=== PATIENT | female | born 1950 | race Two or more races ===

== ENCOUNTER 2017-06-24 09:04 | Outpatient (CLI) | payer OTHER | END 2017-06-24 10:33 | disposition home or self-care (01) | LOC: RAD 501 09:04 | DX: J44.1 Chronic obstructive pulmonary disease with (acute) exacerbation (principal); J11.1 Influenza due to unidentified influenza virus with other respiratory manifestations ==

== ENCOUNTER 2018-09-16 07:15 | Outpatient (CLI) | payer OTHER | END 2018-09-16 07:25 | disposition home or self-care (01) | LOC: TOM 07:15 | DX: R10.13 Epigastric pain (principal); Z86.010 Personal history of colon polyps | CPT/HCPCS: 74177; Q9965 ==

== ENCOUNTER 2021-10-04 08:00 | Outpatient (CLI) | payer OTHER | END 2021-10-04 08:30 | disposition home or self-care (01) | LOC: PPH VACUNA 08:00 | PROVIDERS: ATTEND Emergency Medicine Pediatric Emergency Medicine | DX: Z23 Encounter for immunization (principal) ==

== ENCOUNTER 2022-03-21 11:42 | Outpatient (CLI) | payer OTHER | END 2022-03-21 11:44 | disposition home or self-care (01) | LOC: MAMO-SONO 11:42 | PROVIDERS: ATTEND Physical Medicine & Rehabilitation | DX: N60.11 Diffuse cystic mastopathy of right breast (principal); M54.50 Low back pain, unspecified; R22.1 Localized swelling, mass and lump, neck; Z12.31 Encounter for screening mammogram for malignant neoplasm of breast ==

== ENCOUNTER 2022-03-27 13:07 | Outpatient (CLI) | payer OTHER | END 2022-03-27 13:08 | disposition home or self-care (01) | LOC: NUCLEAR 13:07 | PROVIDERS: ATTEND Physical Medicine & Rehabilitation | DX: M81.0 Age-related osteoporosis without current pathological fracture (principal); Z88.1 Allergy status to other antibiotic agents ==

== ENCOUNTER 2022-08-17 08:45 | Outpatient (CLI) | payer OTHER | END 2022-08-17 09:05 | disposition home or self-care (01) | LOC: RAD 08:45 | PROVIDERS: ATTEND Orthopaedic Surgery Hand Surgery | DX: M25.561 Pain in right knee (principal); M25.562 Pain in left knee; S63.8X1A Sprain of other part of right wrist and hand, initial encounter; S63.8X2A Sprain of other part of left wrist and hand, initial encounter; S83.512D Sprain of anterior cruciate ligament of left knee, subsequent encounter; S83.511D Sprain of anterior cruciate ligament of right knee, subsequent encounter ==

== ENCOUNTER 2022-09-12 13:38 | Emergency (ER) | payer OTHER ==
[~2022-09-12] VITALS: Ht 165.1 cm; Wt 63.5 kg
[2022-09-12] MEDS ORDERED: LOSARTAN POTASS50 MG PO (13:49)
[2022-09-12] MEDS ORDERED: HYDRODIURIL12.5 MG PO (13:50)
== END 2022-09-12 19:31 | disposition home or self-care (01) ==
LOC: ER 13:38
DX: I10 Essential (primary) hypertension (principal); R51.9 Headache, unspecified; Z88.8 Allergy status to other drugs, medicaments and biological substances; Z91.013 Allergy to seafood

== ENCOUNTER 2022-09-13 23:09 | Inpatient (IN) | payer OTHER ==
[~2022-09-13] VITALS: Ht 162.6 cm; Wt 635.0 kg
[~2022-09-13 23:09] MED LIST: HYDRODIURIL12.5 MG PO; LOSARTAN POTASS50 MG PO
--- NOTE | 2022-09-13 23:27 | NUR ---
PACIENTE ALERTA Y ORIENTADA POR MARIANELA. REFIERE DESDE LA MANANA KVNG PRESION. AL REALIZAR TRIAGE B/P MANUAL 180/80. REFIERE SENTIR MOLESTIA EN EL PECHO.
--- NOTE | 2022-09-14 01:05 | NUR ---
SE ORIENTA PTE SOBRE TX A SEGUIR, EL CUAL REFIERE ENTENDER. SE CONECTA PTE A MONITOR CARDIACO Y OXIMETRIA DE PULSO CONTINUA, SE CANALIZA PTE EN PERIFERAL RT CON ANGIO #18 Y ANGIO #22 PATENTES. SE COLECTAN MUESTRAS UTILIZANDO MEDIDAS ASEPTICAS. SE ADM. MEDICAMENTOS MARCO A ORDEN MEDICA.
--- NOTE | 2022-09-14 07:51 | NUR ---
SE RECIBE PTE ALERTA Y ORIENTADO POR 3 EN LA UNIDAD DE CENTRO DE DOLOR DE PECHO CONECTADA A MONITOR CARDIACO Y OXYMETRIA PTE ALERTA Y ORIENTADO POR 3 SE OBSERVA VENOPUNCION PANTETE Y ILENE DE EDEMA PTE NO PRESENTA DOLOR AL MOMENTO PTE SE MANTIENE EN OBSERVACION Y BAJO TRATAMIENTO EN ESPERA DEL DR BARRY
--- NOTE | 2022-09-14 15:03 | NUR ---
SE RECIBE PTE ALERTA Y ORIENTADA X3 EN MIQUEL #16 DE UNIDAD DE CHEST PAIN, PTE CONECTADA A MONITOR CARDIACO CON OXIMETRIA CONTINUA. PTE CON H/L X2 COLOCADOS CON IV FLUIDS DE 0.9NSS BAJANDO A 60ML/HR Y DRIP DE TRIDIL BAJANDO A 4ML/HR. SE MIDEN S/V A PTE Y SE DOCUMENTAN. PTE EN ESPERA DE CONSULTA CON CARDIOLOGIA E INTERNISTA. PTE SE MANTIENE BAJO OBSERVACION.
== END 2022-09-17 11:06 | disposition home or self-care (01) | DRG 305 ==
LOC: ER 23:09 → MEDI 09-14 21:52
PROVIDERS: ADMIT Internal Medicine; ATTEND Internal Medicine
PROC: B54BZZZ Ultrasonography of Right Lower Extremity Veins (ICD-10-PCS; 2022-09-14)
PROC: 4A12X4Z Monitoring of Cardiac Electrical Activity, External Approach (ICD-10-PCS; principal; 2022-09-15)
PROC: B24BZZZ Ultrasonography of Heart with Aorta (ICD-10-PCS; 2022-09-15)
DX: I16.9 Hypertensive crisis, unspecified (principal); E78.5 Hyperlipidemia, unspecified; Z20.822 Contact with and (suspected) exposure to COVID-19

== ENCOUNTER → 2022-12-06 | Outpatient (CLI) | payer OTHER | END | disposition home or self-care (01) | LOC: RAD 11:39 | PROVIDERS: ATTEND Orthopaedic Surgery Hand Surgery | DX: S60.222A Contusion of left hand, initial encounter (principal) ==

== ENCOUNTER 2023-04-09 08:06 | Outpatient (CLI) | payer OTHER | END 2023-04-09 08:07 | disposition home or self-care (01) | LOC: NUCLEAR 08:06 | PROVIDERS: ATTEND Internal Medicine | DX: I25.118 Atherosclerotic heart disease of native coronary artery with other forms of angina pectoris (principal); I11.9 Hypertensive heart disease without heart failure | CPT/HCPCS: 78452; 93017; A9500 ==

== ENCOUNTER 2023-04-19 07:21 | Outpatient (CLI) | payer OTHER | END 2023-04-19 07:34 | disposition home or self-care (01) | LOC: TOM 07:21 | PROVIDERS: ATTEND Internal Medicine | DX: N28.89 Other specified disorders of kidney and ureter (principal); Z88.6 Allergy status to analgesic agent; Z91.013 Allergy to seafood | CPT/HCPCS: 74177; Q9965 ==

== ENCOUNTER 2023-05-14 23:35 | Emergency (ER) | payer OTHER ==
[~2023-05-14] VITALS: Ht 165.1 cm; Wt 61.2 kg
[2023-05-15] MEDS ORDERED: ATORVASTATIN CA40 MG PO (00:17)
[2023-05-15] MEDS ORDERED: PROPRANOLOL HCL10 MG PO (00:18)
[2023-05-15 02:28] LABS: HEMATOCRIT 35.2 % (36.0-45.00); HEMOGLOBIN 11.7 g/dL (12.0-15.00); MEAN CELL VOLUME 88.5 fL (80.00-100.00); MEAN CORPUSCULAR HEMOGLOBIN 29.3 pg (27.00-32.0); MEAN CORPUSCULAR HGB CONC 33.2 g/dl (32.0-36.0); PLATELET COUNT 257 K/uL (150-450); RED BLOOD COUNT 3.98 M/uL (4.00-6.00)
[2023-05-15 02:53] LABS: ALBUMIN 3.5 gm/dL (3.4-5.0); BILIRUBIN TOTAL 0.44 mg/dL (0.3-1.2); CALCIUM 9.5 mg/dL (8.5-10.1); CREATININE SERUM 0.93 mg/dL (0.55-1.02); GFR 59.26; GLOBULINA 3.1 G/DL (2.4-3.5); POTASSIUM 4.26 mEq/L (3.5-5.1); TOTAL PROTEIN 6.6 gm/dL (6.4-8.2)
== END 2023-05-15 09:15 ==
LOC: ER 23:35
PROVIDERS: General Practice
DX: R07.9 Chest pain, unspecified (principal); I10 Essential (primary) hypertension; Z91.013 Allergy to seafood; Z88.2 Allergy status to sulfonamides

== ENCOUNTER 2023-10-03 07:17 | Outpatient (CLI) | payer OTHER ==
[~2023-10-03 07:17] MED LIST changes: +ATORVASTATIN CA40 MG PO; +PROPRANOLOL HCL10 MG PO
== END 2023-10-03 07:23 | disposition home or self-care (01) ==
LOC: SONOGRAMA 07:17
PROVIDERS: ATTEND Obstetrics & Gynecology
DX: R10.9 Unspecified abdominal pain (principal); R10.2 Pelvic and perineal pain

== ENCOUNTER → 2024-04-24 | Outpatient (CLI) | payer OTHER | END | disposition home or self-care (01) | LOC: SONOGRAMA 13:38 | PROVIDERS: ATTEND Urology | DX: N28.1 Cyst of kidney, acquired (principal) ==

== ENCOUNTER 2024-09-11 07:27 | Outpatient (CLI) | payer OTHER | END 2024-09-11 07:29 | disposition home or self-care (01) | LOC: TOM 07:27 | PROVIDERS: ATTEND Internal Medicine Gastroenterology | DX: K57.30 Diverticulosis of large intestine without perforation or abscess without bleeding (principal) | CPT/HCPCS: 74177; Q9965 ==

== ENCOUNTER → 2025-03-19 | Outpatient (CLI) | payer OTHER | END | disposition home or self-care (01) | LOC: SONOGRAMA 08:19 | PROVIDERS: ATTEND Urology | DX: N28.1 Cyst of kidney, acquired (principal) ==

== ENCOUNTER 2025-03-31 09:09 | Outpatient (CLI) | payer OTHER | END 2025-03-31 09:11 | disposition home or self-care (01) | LOC: RAD 09:09 | PROVIDERS: ATTEND Physical Medicine & Rehabilitation | DX: M25.531 Pain in right wrist (principal); M25.532 Pain in left wrist; W19.XXXA Unspecified fall, initial encounter ==